=== PATIENT | male | born 1995 | race Caucasian/White ===

== ENCOUNTER 2020-04-22 15:13 | Emergency (ER) | payer OTHER, SELFPAY ==
--- NOTE | ~2020-04-22 | XR_ITS ---
EXAMINATION: XR chest 1V portable 04/22/2020 17:48 INDICATION: Mid chest pain PROCEDURE: AP portable chest COMPARISON: 08/22/2019 FINDINGS: The lungs are clear. The cardiomediastinal silhouette is within normal limits. There are no pleural effusions. There is no pneumothorax suspected. IMPRESSION: 1: NO ACUTE CARDIOPULMONARY DISEASE. Reviewed, dictated and finalized at location A.
[2020-04-22 15:42] VITALS: BP 126/73; PULSE 92; RESP 18; TEMP 36.9; O2SAT 97
[2020-04-22 16:14] VITALS: BP 132/72; PULSE 86; PULSE 89; RESP 31; O2SAT 96
--- NOTE | 2020-04-22 16:17 | ECG_ITS ---
Measurements Intervals [place] Rate: 90 P: 27 NV: 135 QRS: 29 QRSD: 106 T: 42 QT: 346 QTc: 424 Interpretive Statements SINUS RHYTHM INCOMPLETE RIGHT BUNDLE BRANCH BLOCK BASELINE ARTIFACT- I, III, AVL BORDERLINE ECG Electronically Signed On 04-22-2020 16:21:36 CDT by Juan Cat D.O.
[2020-04-22 17:52] LABS: Basophils Absolute Auto 0.1 K/mm3 (0.0-0.1); Basophils Percent Auto 0.7 % (0.2-1.2); Eosinophils Absolute Auto 0.2 K/mm3 (0-0.3); Eosinophils Percent Auto 1.7 % (0-4.4); Hematocrit 43.3 % (42.0-52.0); Hemoglobin 14.3 g/dL (14.0-18.0); Immature Granulocyte Absolute 0.03 K/mm3 (0.00-0.031); Immature Granulocyte Percent A 0.3 % (0-0.5); Lymphocytes Absolute Auto 2.08 K/mm3 (0.9-3.2); Lymphocytes Percent Auto 18.6 % (18.3-44.2); Mean Corpuscular Hemoglobin 27.9 pg (26-34); Mean Corpuscular Volume 84.4 fl (80-100); Mean Platelet Volume 11.7 fl (7.4-10.4); Monocytes Absolute Auto 0.9 K/mm3 (0.1-0.6); Monocytes Percent Auto 8.3 % (2.6-8.5); Neutrophils Absolute Auto 7.9 K/mm3 (1.3-6.7); Neutrophils Percent Auto 70.4 % (45.5-73.1); Platelet Count Result 235 k/mm3 (150-375); Red Blood Count 5.13 M/mm3 (4.6-6.20); Red Cell Distribution Width 13.6 % (11.5-14.5); White Blood Count 11.2 K/mm3 (4.5-10.0)
[2020-04-22 17:58] LABS: Prothrombin Time 12.9 Seconds (11.1-14.7)
[2020-04-22 18:00] LABS: Alanine Aminotransferase 30 U/L (4-50); Alkaline Phosphatase 83 U/L (38-126); Aspartate Amino Transferase 25 U/L (17-59); Bilirubin,Total 0.5 mg/dL (0.2-1.3); Blood Urea Nitrogen 9 mg/dL (9-20); Calcium 8.6 mg/dL (8.4-10.2); Carbon Dioxide 25 mmol/L (22-30); Chloride 106 mmol/L (98-107); Estimated CRCL calculation 328 ml/min; Estimated Glomerular Filt Rate > 60; Glucose 81 mg/dL (75-110); Sodium 137 mmol/L (137-145)
[2020-04-22 18:11] LABS: Troponin I < 0.012 ng/mL (0.000-0.034)
--- NOTE | 2020-04-22 18:38 | ED.CHESTPAIN ---
HPI - Chest Pain General Chief Complaint: Chest Pain Stated Complaint: chest pain Time Seen by Provider: 04/22/20 16:47 Source: patient and family Mode of arrival: ambulatory Limitations: no limitations History of Present Illness HPI narrative: 24-year-old with a history of traumatic brain injury, hypertension was brought in by family with the complaints of left-sided chest pain for last several weeks. Patient states that he gets intermittent pain which last for few seconds to a minute. Pain is mostly in the left precordial area. He also complains of shortness of breath but that is been ongoing for long time secondary to his morbid obesity. He denies any fever or chills. No family member is exposed to COVID. MD complaint: chest pain Onset (ago): week(s) Timing of current episode: episodic Onset: during rest Pain location: left chest Pain radiation: none Severity: mild Quality: aching Relieving factors: nothing Exacerbating factors: nothing Treatment prior to arrival: none Risk Factors Coronary artery disease risk factors: hypertension Related Data Home Medications Medication Instructions Recorded Confirmed escitalopram oxalate mg 04/22/20 lisinopril 04/22/20 Allergies Allergy/AdvReac Type Severity Reaction Status Date / Time adhesive tape Allergy Unknown Rash Verified 04/22/20 16:18 divalproex sodium Allergy Unknown Rash Verified 04/22/20 16:18 Sulfa (Sulfonamide Allergy Unknown Rash Verified 04/22/20 16:18 Antibiotics) CLINDAMYCIN HCL Allergy Unknown Rash Uncoded 04/22/20 16:18 CLINDAMYCIN PALMITATE HCL Allergy Unknown Rash Uncoded 04/22/20 16:18 CLINDAMYCIN PHOSPHATE Allergy Unknown Rash Uncoded 04/22/20 16:18 HYDROCORTISONE CREAM Allergy Unknown RASH Uncoded 04/22/20 16:18 PHENYTOIN SODIUM Allergy Unknown Rash Uncoded 04/22/20 16:18 PHENYTOIN SODIUM EXTENDED Allergy Unknown Rash Uncoded 04/22/20 16:18 SILK TAPE AdvReac Unknown RASH Uncoded 04/22/20 16:18 Review of Systems Review of Systems: All systems reviewed & are unremarkable except as noted in HPI and below Constitutional: Constitutional: Reports no additional constitutional complaints Eyes: Eyes: Reports no additional eye complaints ENT: Reports system reviewed and no additional complaints, except as documented Cardiovascular: Cardiovascular: Reports no additional cardiovascular complaints Respiratory: Respiratory: Reports no additional respiratory complaints Gastrointestinal: Gastrointestinal: Reports no additional gastrointestinal complaints Musculoskeletal: Musculoskeletal: Reports no additional musculoskeletal complaints Neurologic: Reports system reviewed and no additional complaints, except as documented Psychiatric: Psychiatric: Reports no additional psychiatric complaints Endocrine: Endocrine: Reports no additional endocrine complaints ON LICENSE OF [facility] Social History Social History Gender identity (if verbalized by the patient): Male Exam Narrative: Exam Narrative: GENERAL: Well-appearing, Morbidly obese, and in no acute distress. HEAD: Normocephalic, atraumatic. EYES: PERRLA and EOMI.lazy eye on the left ENT: Nares clear, . Mucous membranes moist. NECK: Supple. CHEST: Clear to auscultation. No respiratory distress. HEART: Regular rate and rhythm. No murmur heard. Normal peripheral pulses. ABDOMEN: Soft, nontender, nondistended, normal active bowel sounds. EXTREMITIES: Normal range of motion. No edema. SKIN: Warm, dry, no rash. NEURO: No focal deficits. Alert and oriented x3. PSYCH: Normal mood and affect. Course Course Emergency Course: With a history of chest pain cardiac work-up will order along with a d-dimer, as the family states that they have a strong history of clotting disorders. Inform patient and family about the lab work. Patient at this time feel comfortable advised him to continue home medication, follow-up with his primary doctor. Vital Signs Vital signs: Vital Signs Temperature 36.9 C 04/22/20 15:42
[2020-04-22 18:42] VITALS: BP 145/75; PULSE 100; RESP 23; O2SAT 100
[2020-04-22 19:05] VITALS: BP 134/78; PULSE 96; RESP 25; O2SAT 100
== END 2020-04-22 19:07 | disposition home or self-care (01) ==
PROVIDERS: Emergency Provider Family Medicine; PCP Emergency Medicine
DX: R07.9 Chest pain, unspecified (principal); I10 Essential (primary) hypertension; Z87.820 Personal history of traumatic brain injury; I45.10 Unspecified right bundle-branch block
CPT/HCPCS: 36415; 71045; 80053; 84484; 85025; 85380; 85610; 93005; 99284

== ENCOUNTER 2020-05-18 08:40 | Outpatient (CLI) | payer OTHER, SELFPAY ==
--- NOTE | 2020-05-18 | ECHO_ITS ---
Patient Info Name: Lio Parsons Age: 24 years : 1995 Gender: Male Ht: 66 in Wt: 470 lbs BSA: 3.30 m2 HR: 89 bpm BP: 137 / 93 mmHg Technical Quality: Poor Exam Date: 05/18/2020 9:15 AM Exam Location: [facility] Patient Status: Outpatient Admit Date: 05/18/2020 Staff Ordering Physician: Jarrett Marquez MD Selling Specialist: Ally Guan RDCS Attending Provider: Jarrett Marquez MD Referring Physician: Jimmy WHITE; Exam Type: CA echo dop color flow w con Study Info Indications - chest pain Complete two-dimensional, color flow and Doppler transthoracic echocardiogram is performed with contrast to opacify the left ventricle and to improve the deliniation of the left ventricle endocardial borders. Contrast/Agitated Saline Contrast/Ag. Saline: Definity Amount: 1.00 ml New IV Access: Left Site Condition: IV removed Reason for Poor Study: patient body habitus Summary 1. Technically suboptimal study due to poor sonographic images. 2. Left ventricular chamber dimension is normal. 3. Definity contrast administered improved wall motion interpretation. 4. Left ventricular systolic function is normal, estimated at 60-65%. 5. There is mildly increased left ventricular wall thickness. 6. The left ventricular diastolic function is normal. 7. E/e' 8 is minimally elevated. 8. No pulmonary hypertension, estimated pulmonary arterial systolic pressure is 35 mmHg. Left Ventricle Definity contrast administered improved wall motion interpretation. E/e' 8 is minimally elevated. Technically suboptimal study due to poor sonographic images. Left ventricular chamber dimension is normal. Left ventricular systolic function is normal, estimated at 60-65%. There is mildly increased left ventricular wall thickness. The left ventricular diastolic function is normal. Right Ventricle Right ventricular chamber dimension is normal. Right ventricular systolic function is normal. Left Atria Left atrial chamber dimension is normal. Right Atria Right atrial chamber dimension is normal. Aortic Valve The aortic valve is trileaflet. There is no aortic valve stenosis. There is no aortic valve regurgitation. Pulmonic Valve There is no pulmonic regurgitation. Mitral Valve There is no mitral valve stenosis. There is no mitral valve regurgitation. Tricuspid Valve There is no tricuspid valve regurgitation. No pulmonary hypertension, estimated pulmonary arterial systolic pressure is 35 mmHg. Pericardium/Pleural There is no pericardial effusion. Inferior Vena Cava Normal inferior vena cava with >50% collapse upon inspiration consistent with normal right atrial pressure, 5 mmHg. Aorta The aortic root size at the sinus of Valsalva is normal. Left Ventricular Outflow Tract Name Value Normal LVOT 2D LVOT Diameter 2.14 cm LVOT Doppler LVOT Peak Gradient 4 mmHg LVOT Mean Gradient 2 mmHg LVOT VTI 19.68 cm LVOT VTI/AV VTI Ratio 0.70
[2020-05-18] MEDS: PERFLUTREN LIPID MICROSPHERES 1.5 ML VIAL DILUTED TO 10 ML TOTAL VOLUME IV PUSH (10:25)
== END 2020-05-18 08:41 | disposition home or self-care (01) ==
PROVIDERS: PCP Emergency Medicine; Visit Provider Emergency Medicine
DX: R07.9 Chest pain, unspecified (principal); R06.02 Shortness of breath
CPT/HCPCS: C8929

== ENCOUNTER 2021-05-06 08:06 | Outpatient (RCR) | payer OTHER, SELFPAY ==
--- NOTE | 2021-05-06 09:51 | PCPTNOTE ---
PHYSICAL THERAPY POWER MOBILITY EVALUATION Attending Provider: Jarrett Marquez MD Patient:Lio Parsons Date of :1995 Lio participated in power mobility evaluation. Recommendations were provided on seating evaluation. No further care plan will be developed at this time. Thank you for referring this patient to [facility]. Please review, sign, date and return this discharge summary DAVID. I have been updated about the patient's current status and I agree with discharge from the above service at this time. Referring Physician Date
== END 2021-05-07 14:25 | disposition home or self-care (01) ==
LOC: ANHPT 08:06
PROVIDERS: PCP Emergency Medicine; Visit Provider Emergency Medicine
DX: Z02.71 Encounter for disability determination (principal); Z74.09 Other reduced mobility
CPT/HCPCS: 97163

== ENCOUNTER 2021-09-27 11:12 | Emergency (ER) | payer OTHER, SELFPAY ==
--- NOTE | ~2021-09-27 | XR_ITS ---
EXAMINATION: XR chest 1V portable DATE: 09/27/2021 13:10 INDICATION: Shortness of breath. COVID. TECHNIQUE: frontal view of the chest was obtained. COMPARISON: Chest radiograph dated 04/22/2020 FINDINGS: The lungs remain clear with no focal airspace opacities, pulmonary edema, pleural effusion or pneumot horax. The cardiomediastinal silhouette is normal. Visualized bones and soft tissues are unremarkable . IMPRESSION: 1. No acute cardiopulmonary disease. Reviewed, dictated and finalized at location B. [employer]
[2021-09-27 11:20] VITALS: BP 147/79; PULSE 111; RESP 24; TEMP 36.7; O2SAT 97
[2021-09-27 12:55] VITALS: BP 154/86; PULSE 93; RESP 22; TEMP 36.5; O2SAT 95
--- NOTE | 2021-09-27 14:10 | ED.GENADULT ---
HPI - General Adult General Chief complaint: Shortness of Breath/Dyspnea Stated complaint: home test covid +, SOB, DAVIDSON Time Seen by Provider: 09/27/21 12:48 History of Present Illness HPI narrative: Patient is a 25-year-old male who presents to the ER with cold symptoms. Reports he has been having some cough and headache. He was feeling unwell this morning and has had 2+ Covid test at home. Mother reports that she is tested twice this week and was negative. Unknown how patient may have contracted Covid. Reports she does not typically leave the house. Patient reports mild shortness of breath related to this. He does have BiPAP at home that he has not been wearing. Related Data Home Medications Medication Instructions Recorded Confirmed escitalopram oxalate mg 04/22/20 lisinopril 04/22/20 Allergies Allergy/AdvReac Type Severity Reaction Status Date / Time adhesive tape Allergy Unknown Rash Verified 04/24/20 10:29 divalproex sodium Allergy Unknown Rash Verified 04/24/20 10:29 hydroxyprogesterone Allergy Unknown Verified 04/24/20 10:29 Sulfa (Sulfonamide Allergy Unknown Rash Verified 04/24/20 10:29 Antibiotics) CLINDAMYCIN HCL Allergy Unknown Rash Uncoded 04/24/20 10:29 CLINDAMYCIN PALMITATE HCL Allergy Unknown Rash Uncoded 04/24/20 10:29 CLINDAMYCIN PHOSPHATE Allergy Unknown Rash Uncoded 04/24/20 10:29 HYDROCORTISONE CREAM Allergy Unknown RASH Uncoded 04/24/20 10:29 PHENYTOIN SODIUM Allergy Unknown Rash Uncoded 04/24/20 10:29 PHENYTOIN SODIUM EXTENDED Allergy Unknown Rash Uncoded 04/24/20 10:29 SILK TAPE AdvReac Unknown RASH Uncoded 04/24/20 10:29 Review of Systems Constitutional: Constitutional: Reports fatigue, Denies fever(s) and Reports weakness ENT: Reports nasal congestion and Reports sore throat Respiratory: Respiratory: Reports cough, Reports dyspnea and Denies wheezing Gastrointestinal: Gastrointestinal: Denies abdominal pain, Denies nausea and Denies vomiting Neurologic: Reports headache(s), Denies focal weakness and Denies numbness PMFSH Past Medical History Medical History (Updated 09/27/21 @ 14:21 by Paras Jj MD) ADHD Dilated aortic root Hypertension Seizures Traumatic brain injury Surgical History Surgical History (Updated 09/27/21 @ 14:15 by Paras Jj MD) History of ankle surgery Social History Social History (System 04/24/20 @ 10:29 by Deanna Irene) Gender identity (if verbalized by the patient): Male Exam Narrative: GENERAL: Well-appearing, morbidly obese, and in no acute distress. HEAD: Normocephalic, atraumatic. EYES: Asymmetric pupils with right pupil being dilated. At baseline for patient. CHEST: Clear to auscultation. No respiratory distress. HEART: Regular rate and rhythm. Normal peripheral pulses. EXTREMITIES: Normal range of motion. No edema. SKIN: Warm, dry, no rash. NEURO: Alert and oriented x3. PSYCH: Normal mood and affect. Course Course Emergency Course: Chest x-ray free of pneumonia. Patient ambulatory in the ED without any hypoxia. Recommend that patient contact PCP to discuss potential for outpatient antibody infusion. We will obtain a formal Covid test to make this a possibility. Infusion may be difficult as there are no antibodies available at [facility]. Vital Signs Vital signs: Vital Signs Temperature 98.1 F 09/27/21 11:20 Pulse Rate 111 H 09/27/21 11:20 Respiratory Rate 24 H 09/27/21 11:20 Blood Pressure 147/79 H 09/27/21 11:20 Pulse Oximetry 97 09/27/21 11:20 Temperature 97.7 F 09/27/21 12:55 Pulse Rate 93 09/27/21 12:55 Respiratory Rate 22 H 09/27/21 12:55 Blood Pressure 154/86 H 09/27/21 12:55 Pulse Oximetry 95 09/27/21 12:55 Medical Decision Making Vital Signs Vital Signs: Vital Signs Temperature 98.1 F 09/27/21 11:20 Pulse Rate 111 H 09/27/21 11:20 Respiratory Rate 24 H 09/27/21 11:20 Blood Pressure 147/79 H 09/27/21 11:20 Pulse Oximetry 97 01
[2021-09-27 16:50] LABS: SARS-CoV-2 RNA PCR Positive
== END 2021-09-27 14:41 | disposition home or self-care (01) ==
PROVIDERS: Emergency Provider Emergency Medicine; PCP Emergency Medicine
DX: U07.1 COVID-19 (principal); I10 Essential (primary) hypertension; F90.9 Attention-deficit hyperactivity disorder, unspecified type; Z87.820 Personal history of traumatic brain injury
CPT/HCPCS: 71045; 99283; C9803; U0003; U0005